=== PATIENT | female | born 1935 | race Caucasian/White ===

== ENCOUNTER 2019-03-22 14:41 | Outpatient (CLI) | payer MEDICARE, OTHER | END 2019-03-22 23:55 | disposition home or self-care (01) | LOC: CARD 14:41 | PROVIDERS: ATTEND Internal Medicine Interventional Cardiology | DX: M79.604 Pain in right leg (principal); R22.41 Localized swelling, mass and lump, right lower limb | CPT/HCPCS: 93971-TC ==

== ENCOUNTER 2019-06-13 17:39 | Inpatient (IN) | payer MEDICARE, OTHER ==
[~2019-06-13] VITALS: Ht 167.6 cm; Wt 64.4 kg
--- NOTE | 2019-06-13 18:00 | NUR ---
bibdaughter in law, from [facility], came in due to low bp 76/43 on scene. Patient a/ox3, breathing even and unlabored, no sob noted, needs attended. Keep comfortable. No distress noted.
--- NOTE | 2019-06-13 19:03 | NUR ---
iv line established, blood drawn and sent to lab
[2019-06-13 19:11] LABS: BASOPHILS % (AUTO) 0.6 % (0.0-2.0); HEMATOCRIT 31 % (33-45); HEMOGLOBIN 10.4 g/dL (11.5-14.8); LYMPHOCYTES # (AUTO) 0.6 /CMM (0.8-4.8); LYMPHOCYTES % (AUTO) 8.7 % (20.0-44.0); MEAN CORPUSCULAR HGB CONC 34 g/dl (31.0-36.0); MEAN CORPUSCULAR VOLUME 84 fL (82-100); MONOCYTES # (AUTO) 0.5 /CMM (0.1-1.30); MONOCYTES % (AUTO) 6.9 % (2.0-12.0); NEUTROPHILS # (AUTO) 5.9 /CMM (1.8-8.9); NEUTROPHILS % (AUTO) 83.8 % (43.0-81.0); PLATELET COUNT (AUTO) 178 /CMM (150-450); RED BLOOD CELL COUNT(AUTO) 3.68 MIL/uL (4.0-5.2)
--- NOTE | 2019-06-13 19:15 | NUR ---
REPORT REC'D FROM JARED NORIEGA
--- NOTE | 2019-06-13 19:15 | NUR ---
XRAY IN PROGRESS AT THE BEDSIDE.
--- NOTE | 2019-06-13 19:19 | NUR ---
IN & OUT CATH/STRAIGHT CATH IN PROGRESS AT THE BEDSIDE. PT HAS APPROX 300 ML YELLOW, CLEAR URINE OUTPUT.
[2019-06-13 19:40] LABS: CALCIUM, SERUM 10.3 mg/dL (8.5-10.1); CARBON DIOXIDE 33 mmol/L (21-32); CHLORIDE 95 mmol/L (98-107); CREATININE 1.5 mg/dL (0.6-1.3); GLUCOSE 120 mg/dL (74-106); POTASSIUM 3.5 mmol/L (3.5-5.1); SODIUM SERUM 133 mmol/L (136-145); UREA NITROGEN, BLOOD 36 mg/dL (7-18)
[2019-06-13 19:42] LABS: APPEARANCE,URINE Clear (CLEAR); BILIRUBIN,URINE Negative (NEGATIVE); BLOOD, URINE Trace-intact Ery/uL (NEGATIVE); COLOR,URINE Yellow (YELLOW); KETONES,URINE Negative (NEGATIVE); LEUKOCYTE ESTERASE ,URINE Negative (NEGATIVE); NITRITE, URINE Negative (NEGATIVE); PROTEIN,URINE Negative (NEGATIVE); UGLUCOSE Negative (NEGATIVE); UROBILINOGEN,URINE 0.2 EU/dL (0.2)
[2019-06-13 19:46] LABS: ALANINE AMINOTRANSFERASE 11 U/L (12-78); ALBUMIN 3.1 g/dL (3.4-5.0); ALKALINE PHOSPHATASE 41 U/L (46-116); ASPARTATE AMINOTRANSFERASE 15 U/L (15-37); BILIRUBIN,DIRECT 0.1 mg/dL (0.0-0.2); BILIRUBIN,TOTAL 0.5 mg/dL (0.2-1.0); TOTAL PROTEIN, SERUM 7.8 g/dL (6.4-8.2)
[2019-06-13 19:50] LABS: BACTERIA,URINE Few /HPF (None Seen); SQUAMOUS EPITHELIAL CELL,UR Few /HPF (None Seen); WBC,URINE 0-2 /HPF (0-3)
--- NOTE | 2019-06-13 20:15 | NUR ---
CALLED DR CANADA, WAS PAGED.
[2019-06-13] MEDS ORDERED: IV NS 0.9% 500 ML BAG IV ONE (20:30)
--- NOTE | 2019-06-13 20:52 | NUR ---
CALLED [facility] FOR TELE BED
[2019-06-13] MEDS ORDERED: QUIN20TA18 PO (21:11)
[2019-06-13] MEDS ORDERED: TOVIAZ ER PO (21:11)
[2019-06-13] MEDS ORDERED: METH1TAB30 PO (21:11)
[2019-06-13] MEDS ORDERED: MAGN400O21 PO (21:11)
[2019-06-13] MEDS ORDERED: DOCU100C36 PO (21:11)
[2019-06-13] MEDS ORDERED: NYST5ORA PO (21:11)
[2019-06-13] MEDS ORDERED: CALC-1276 PO (21:11)
[2019-06-13] MEDS ORDERED: LEVO75TA7 PO (21:11)
[2019-06-13] MEDS ORDERED: MINE454C11 TP (21:11)
[2019-06-13] MEDS ORDERED: LORA-259 PO (21:11)
[2019-06-13] MEDS ORDERED: ESTRADIOL 0.01% TP (21:11)
[2019-06-13] MEDS ORDERED: TRIAMCINOLONE 0.025% TP (21:11)
[2019-06-13] MEDS ORDERED: METH1ADH6 TP (21:11)
[2019-06-13] MEDS ORDERED: GLYC1SUP4 RC (21:11)
[2019-06-13] MEDS ORDERED: MENT1.1L PO (21:11)
[2019-06-13] MEDS ORDERED: CERA355L TP (21:11)
[2019-06-13] MEDS ORDERED: PRISTIQ ER PO (21:11)
[2019-06-13] MEDS ORDERED: METAMUCIL FIBER PO (21:11)
[2019-06-13] MEDS ORDERED: POLY17PO29 PO (21:11)
[2019-06-13] MEDS ORDERED: CHOL200026 PO (21:11)
[2019-06-13] MEDS ORDERED: POTASSIUM CL ER PO (21:11)
[2019-06-13] MEDS ORDERED: TRAZ-182 PO (21:11)
[2019-06-13] MEDS ORDERED: AMIT25TA9 PO (21:11)
[2019-06-13] MEDS ORDERED: ACET325T53 PO (21:11)
[2019-06-13] MEDS ORDERED: ONDA-97 PO (21:11)
[2019-06-13] MEDS ORDERED: [UNRECOGNIZED DRUG - OTHER] TP (21:11)
[2019-06-13] MEDS ORDERED: RIVA10TA PO (21:11)
[2019-06-13] MEDS ORDERED: CETI10TA14 PO (21:11)
[2019-06-13] MEDS ORDERED: CARV25TA2 PO (21:11)
[2019-06-13] MEDS ORDERED: HYDR25TA4 PO (21:11)
[2019-06-13] MEDS ORDERED: DICL100G16 TP (21:11)
[2019-06-13] MEDS ORDERED: CARB15DR2 OP (21:11)
[2019-06-13] MEDS ORDERED: FURO20TA4 PO (21:11)
[2019-06-13] MEDS ORDERED: CALC-896 PO (21:11)
[2019-06-13] MEDS ORDERED: ZINC57OI3 TP (21:11)
[2019-06-13] MEDS ORDERED: NITR100C11 PO (21:11)
[2019-06-13] MEDS ORDERED: KETO5DRO72 OP (21:11)
[2019-06-13] MEDS ORDERED: TRAM50TA2 PO (21:11)
--- NOTE | 2019-06-13 21:45 | NUR ---
CALLING REPORT TO MS NURSE.
--- NOTE | 2019-06-13 21:52 | NUR ---
REPORT TO JARED ALONZO
[2019-06-13] MEDS ORDERED: IV NS 0.9% 1,000 ML IV PRN (21:59)
[2019-06-13] MEDS ORDERED: TRAMADOL HCL 50 MG TABLET PO PRN (22:00)
[2019-06-13] MEDS ORDERED: ONDANSETRON HCL/PF 4 MG/2 ML VIAL IVP PRN (22:00)
[2019-06-13] MEDS ORDERED: ACETAMINOPHEN 325 MG TABLET PO PRN (22:00)
[2019-06-13] MEDS ORDERED: LORAZEPAM 1 MG TABLET PO PRN (22:00)
[2019-06-13] MEDS ORDERED: NYSTATIN SUSP 100,000 U/ML BOTTLE PO PRN (22:00)
[2019-06-13] MEDS ORDERED: cetrizine 10 MG TABLET PO PRN (22:00)
[2019-06-13] MEDS ORDERED: Z GUARD REMEDY 2 OZ OINT TP PRN (22:00)
--- NOTE | 2019-06-13 22:00 | NUR ---
MS RN OPENING NOTES, RECEIVED PATIENT FROM ER VIA DANNY, A/O X 3. SON AT BED SIDE. PATIENT IS ON ROOM AR TOLERATING WELL, NO SOB OR ACUTE DISTRESS NOTED AT THIS TIME. PATIENT HAS LEFT UPPER CHEST PEACEMAKER AND RAC #20, FLUSHING WELL. NO S/S OF INFILTRATION NOTED. BED IS IN LOCKED/LOW POSITION CALL LIGHT WITHIN REACH. WILL CONTINUE TO MONITOR.
[2019-06-13] MEDS: AMITRIPTYLINE HCL 25 MG TABLET PO SCH (23:16)
[2019-06-13] MEDS: TRAZODONE 50 MG TABLET PO SCH (23:16)
[2019-06-14] VITALS: BP 128/74
[2019-06-14 04:00] VITALS: BP_SYST 143; BP_DIAS 60; BP_DIAS 74
[2019-06-14 07:08] LABS: BASOPHILS % (AUTO) 0.6 % (0.0-2.0); EOSINOPHILS % (AUTO) 0.3 % (0.0-6.0); HEMATOCRIT 31 % (33-45); HEMOGLOBIN 10.2 g/dL (11.5-14.8); LYMPHOCYTES # (AUTO) 0.6 /CMM (0.8-4.8); LYMPHOCYTES % (AUTO) 11.7 % (20.0-44.0); MEAN CORPUSCULAR HGB CONC 33 g/dl (31.0-36.0); MEAN CORPUSCULAR VOLUME 85 fL (82-100); MONOCYTES # (AUTO) 0.5 /CMM (0.1-1.30); MONOCYTES % (AUTO) 8.3 % (2.0-12.0); NEUTROPHILS # (AUTO) 4.3 /CMM (1.8-8.9); NEUTROPHILS % (AUTO) 79.1 % (43.0-81.0); PLATELET COUNT (AUTO) 162 /CMM (150-450); RED BLOOD CELL COUNT(AUTO) 3.63 MIL/uL (4.0-5.2); WHITE BLOOD COUNT (AUTO) 5.5 K/uL (4.3-11.0)
[2019-06-14 07:26] LABS: ALANINE AMINOTRANSFERASE < 6 U/L (12-78); ALBUMIN 2.7 g/dL (3.4-5.0); ALKALINE PHOSPHATASE 39 U/L (46-116); ASPARTATE AMINOTRANSFERASE 10 U/L (15-37); BILIRUBIN,TOTAL 0.3 mg/dL (0.2-1.0); CALCIUM, SERUM 9.2 mg/dL (8.5-10.1); CARBON DIOXIDE 31 mmol/L (21-32); CHLORIDE 98 mmol/L (98-107); CREATININE 1.3 mg/dL (0.6-1.3); GLUCOSE 87 mg/dL (74-106); MAGNESIUM 1.4 mg/dL (1.8-2.4); PHOSPHORUS 3.4 mg/dL (2.5-4.9); POTASSIUM 3.2 mmol/L (3.5-5.1); SODIUM SERUM 134 mmol/L (136-145); UREA NITROGEN, BLOOD 33 mg/dL (7-18)
[2019-06-14 07:29] LABS: CHOLESTEROL 204 mg/dL (<200); HDL CHOLESTEROL 38 mg/dL (40-60); LDL 141 mg/dL (0-99); THYROID STIMULATING HORMONE 1.587 uIU/mL (0.358-3.74); TRIGLYCERIDES 87 mg/dL (30-150)
[2019-06-14 07:33] LABS: IRON, SERUM 15 ug/dl (50-175); TOTAL IRON BINDING CAPACITY 157 ug/dl (250-450)
[2019-06-14] MEDS: LEVOTHYROXINE SODIUM 75 MCG TABLET PO SCH (07:37)
[2019-06-14 08:00] VITALS: BP 132/74
--- NOTE | 2019-06-14 08:00 | NUR ---
RNNOTES RECEIVED PATIENT IN THE BED A/O X3, STABLE REFUSED PAIN, NO ACUTE RESPIRATORY DISTRESS, V/S TAKEN, ADMINISTERED SCHEDULED MEDICATION, PATIENT POOR EATER, NEEDS ATTENDED AND ANTICIPATED, INFUSING NS AT 75 ML/HE ON RIGHT AC AREA INTACT. CALL LIGHT WITHIN TO REACH.
--- NOTE | 2019-06-14 09:07 | NUR ---
MS RN CLOSING NOTES, PATIENT IN BED RESTING, A/O X 3. PATIENT IS ON ROOM AR TOLERATING WELL, NO SOB OR ACUTE DISTRESS NOTED AT THIS TIME. PATIENT HAS LEFT UPPER CHEST PEACEMAKER AND RAC #20, NS RUNNING AT 75ML/HR. NO S/S OF INFILTRATION NOTED. BED IS IN LOCKED/LOW POSITION CALL LIGHT WITHIN REACH. ENDORSED PATIENT TO AM RN FOR LULA.
[2019-06-14] MEDS: Magnesium 1GM/D5W 100ML PREMIX 100 ML IV SCH ×2 (09:59→10:30)
--- NOTE | 2019-06-14 10:00 | NUR ---
RN NOTES PATIENT WALKING IN THE ROOM WITH THE PT USING WALKER, AND WILL CONTINUED FOLLOW UP TOMORROW. INFUSING MG 100 ML/HR AT THIS TIME.
[2019-06-14] MEDS: RIVAROXABAN 10 MG TABLET PO SCH (10:07)
[2019-06-14] MEDS: CARVEDILOL 12.5 MG TABLET PO SCH ×2 (10:08→21:27)
[2019-06-14] MEDS: POTASSIUM CHLORIDE 20 MEQ TAB.PRT.SR PO SCH ×2 (10:27→12:09)
[2019-06-14 12:00] VITALS: BP 129/70
[2019-06-14] MEDS: SOD FERRIC GLUC 125 MG in IV NS 0.9% 100 ML IV SCH (14:23)
--- NOTE | 2019-06-14 18:00 | NUR ---
RN NOTES PATIENT IN THE BED TOLERATED DINNER 30 %, PER PATIENT SHE IS ALWAYS EATING SMALL PORTION, SCHEDULED MEDICATION ADMINISTERED, V/S STABLE, INFUSING NS AT 75 ML/HR ON RIGHT AC AREA INTACT. PER HOSPITALIST PLAN ID DISCHARGE PATIENT TO THE REHAB FOR PT. ENDORSED ONCOMING NURSE FOLLOW PLAN OF CARE.
--- NOTE | 2019-06-14 19:45 | NUR ---
MS RN NOTE PT ARRIVED TO FLOOR VIA BED ACCOMPANIED BY [facility] STAFF. PT IN STABLE CONDITION A/O X 3, AWAKE AND VERBAL. NO SIGNS OF SOB OR DISTRESS, NO C/O PAIN OR N/V. IV IN LAC #[address] ALL CURRENT NEEDS ATTENDED TO. BED LOW, LOCKED, UPPER RAILS UP AND CALL LIGHT WITHIN REACH. WILL CONT. TO MONITOR.
[2019-06-14 20:00] VITALS: BP 141/71
[2019-06-14] MEDS ORDERED: AMITRIPTYLINE HCL 25 MG TABLET ONE (21:19)
[2019-06-14] MEDS: TRAZODONE 50 MG TABLET PO SCH (21:28)
[2019-06-14] MEDS: AMITRIPTYLINE HCL 25 MG TABLET PO SCH (21:28)
[2019-06-15 04:04] VITALS: BP 129/71
[2019-06-15 06:11] VITALS: BP 141/71
[2019-06-15 06:32] LABS: BASOPHILS % (AUTO) 0.4 % (0.0-2.0); EOSINOPHILS % (AUTO) 0.2 % (0.0-6.0); HEMATOCRIT 30 % (33-45); HEMOGLOBIN 10.1 g/dL (11.5-14.8); LYMPHOCYTES # (AUTO) 0.9 /CMM (0.8-4.8); LYMPHOCYTES % (AUTO) 16.8 % (20.0-44.0); MEAN CORPUSCULAR HGB CONC 33 g/dl (31.0-36.0); MEAN CORPUSCULAR VOLUME 85 fL (82-100); MONOCYTES # (AUTO) 0.7 /CMM (0.1-1.30); MONOCYTES % (AUTO) 11.7 % (2.0-12.0); NEUTROPHILS % (AUTO) 70.9 % (43.0-81.0); PLATELET COUNT (AUTO) 162 /CMM (150-450); WHITE BLOOD COUNT (AUTO) 5.7 K/uL (4.3-11.0)
[2019-06-15] MEDS: LEVOTHYROXINE SODIUM 75 MCG TABLET PO SCH (06:37)
--- NOTE | 2019-06-15 06:41 | NUR ---
MS RN NOTE PT REMAINS IN STABLE CONDITION A/O X 3, RESTING IN BED. NO SIGNS OF SOB OR DISTRESS, NO C/O PAIN OR N/V. IV IN LAC #[address] WITH IVF INFUSING. ALL CURRENT NEEDS ATTENDED TO. BED LOW, LOCKED, UPPER RAILS UP AND CALL LIGHT WITHIN REACH. WILL CONT. TO MONITOR AND ENDORSE TO NEXT SHIFT FOR LULA.
[2019-06-15] MEDS: IV NS 0.9% 1,000 ML IV PRN ×2 (06:45→21:13)
[2019-06-15 06:51] LABS: ALBUMIN 2.6 g/dL (3.4-5.0); BILIRUBIN,TOTAL 0.3 mg/dL (0.2-1.0); CALCIUM, SERUM 9.3 mg/dL (8.5-10.1); CREATININE 1.2 mg/dL (0.6-1.3); PHOSPHORUS 2.8 mg/dL (2.5-4.9); POTASSIUM 3.2 mmol/L (3.5-5.1); TOTAL PROTEIN, SERUM 6.9 g/dL (6.4-8.2)
[2019-06-15 07:10] LABS: THYROID STIMULATING HORMONE 1.479 uIU/mL (0.358-3.74); URIC ACID 6.5 mg/dL (2.6-7.2)
[2019-06-15 07:30] VITALS: BP 133/75
--- NOTE | 2019-06-15 07:30 | NUR ---
M/S RN NOTES PATIENT RESTING IN BED, ALERT AND ORIENTED X3, NO RESPIRATORY DISTRESS, NO C/O PAIN AT THIS TIME. SKIN WARM TO TOUCH, IV NS INFUSING AT 125ML/HR ON THE RAC #20G, INTACT AND PATENT. PATIENT'S NEEDS ATTENDED, BED ON LOWEST LOCKED POSITION, CALL LIGHT WITHIN REACH. WILL CONTINUE TO MONITOR.
[2019-06-15] MEDS: CARVEDILOL 12.5 MG TABLET PO SCH ×2 (09:14→21:06)
[2019-06-15] MEDS: RIVAROXABAN 10 MG TABLET PO SCH (09:19)
[2019-06-15] MEDS ORDERED: POTASSIUM CHLORIDE 20 MEQ TAB.PRT.SR PO ONE (10:30)
[2019-06-15 12:00] VITALS: BP 160/70
[2019-06-15] MEDS: SOD FERRIC GLUC 125 MG in IV NS 0.9% 100 ML IV SCH (14:17)
--- NOTE | 2019-06-15 15:36 | NUR ---
M/S RN NOTES JULIET FROM [facility] REPORTED THAT PATIENT IS POSITIVE FOR MRSA IN THE NARES. WILL NOTIFY
--- NOTE | 2019-06-15 15:38 | NUR ---
M/S RN NOTES CONTACT ISOLATION PRECAUTION IN PLACE FOR PATIENT FOR MRSA NARES.
--- NOTE | 2019-06-15 19:45 | NUR ---
RN NOTES RECEIVED PATIENT AWAKE ON BED A/OX3, DENIES PAIN, NO SOB, CALL LIGHT WITHIN REACH, SIDERAILSUPX2, CONTINUE TO MONITOR
[2019-06-15 20:00] VITALS: BP 142/83
[2019-06-15 20:37] VITALS: BP 142/83
[2019-06-15] MEDS: MUPIROCIN OINT 2% 22 GM TUBE SCH (21:05)
[2019-06-15] MEDS: TRAZODONE 50 MG TABLET PO SCH (21:05)
[2019-06-15] MEDS: AMITRIPTYLINE HCL 25 MG TABLET PO SCH (21:05)
[2019-06-16] MEDS: LEVOTHYROXINE SODIUM 75 MCG TABLET PO SCH (06:11)
--- NOTE | 2019-06-16 07:00 | NUR ---
RN NOTES AWAKE, MORNING CARE RENDERED, NOT IN DISTRESS, NO PAIN NOTED, CALL LIGHT WITHIN REACH, SIDERAILSUPX2, PT. NEEDS ATTENDED
--- NOTE | 2019-06-16 07:05 | NUR ---
MS RN OPENING NOTES RECEIVED PATIENT, ASLEEP, AROUSABLE TO VERBAL AND TACTILE STIMULI. HOB ELEVATED. DENIES ANY C/O PAIN NOR DISCOMFORT AT THIS TIME. LEFT AC # 20 INTACT AND PATENT INFUSING NS @ 125ML/HR IRENE WELL. BED IN LOWEST POSITION, LOCKED. BED ALARM ON. CALL LIGHT WITHIN REACH.
[2019-06-16 07:06] LABS: PTH, INTACT 20 pg/mL (15-65)
[2019-06-16 08:00] VITALS: BP 149/80
[2019-06-16] MEDS: MUPIROCIN OINT 2% 22 GM TUBE SCH (08:06)
[2019-06-16] MEDS: RIVAROXABAN 10 MG TABLET PO SCH (08:08)
[2019-06-16] MEDS: CARVEDILOL 12.5 MG TABLET PO SCH (08:09)
[2019-06-16 09:07] LABS: *SPE A/G RATIO 0.8 (0.7-1.7); *SPE ALBUMIN 2.8 g/dL (2.9-4.4); *SPE ALPHA-1-GLOBULIN 0.2 g/dL (0.0-0.4); *SPE ALPHA-2-GLOBULIN 0.7 g/dL (0.4-1.0); *SPE GLOBULIN, TOTAL 3.6 g/dL (2.2-3.9); *SPE M-SPIKE Not Observed g/dL (Not Observed); *SPEGAMMA GLOBULIN 1.6 g/dL (0.4-1.8)
[2019-06-16 10:00] VITALS: BP 149/80
[2019-06-16] MEDS ORDERED: LISINOPRIL (10MG) 10 MG TABLET PO SCH (10:30)
[2019-06-16 10:47] VITALS: BP 146/68
[2019-06-16] MEDS ORDERED: POTASSIUM CHLORIDE 20 MEQ TAB.PRT.SR PO SCH (11:00)
--- NOTE | 2019-06-16 11:03 | NUR ---
MS LOCOMOTIVE FIRER/ CLOSING NOTES ALERT AND ORIENTED X3. FOR DISCHARGE WITH DISCHARGE INSTRUCTIONS AND PACKET GIVEN TO EMT. REPORT GIVEN TO ROSARIO AT [facility]. NO S/S OF RESPIRATORY DISTRESS. DENIES ANY C/O PAIN NOR DISCOMFORT AT THIS TIME. DR. HOGAN SPOKE TO JESSICA FLOR AND UPDATED FAMILY THAT PATIENT IS LEAVING FOR [facility]. IV CATHETER REMOVED WITH CATHETER TIP INTACT WITH PRESSURE DRESSING APPLIED. ALL BELONGINGS ACCOUNTED FOR. PATIENT PICKED UP BY JOHNNIE ACCOMPANIED BY 2 EMT AND LEFT VIA GURNEY, LEFT IN STABLE CONDITION.
[2019-06-16] MEDS ORDERED: GLUCERNA SHAKE 237 ML CAN PO SCH (12:00)
== END 2019-06-16 11:03 | DRG 682 ==
LOC: ER 17:44 → MEDSG1 21:35 → MEDSG2 06-14 19:41
PROVIDERS: ADMIT Nurse Practitioner Acute Care; ATTEND Internal Medicine
DX: N17.0 Acute kidney failure with tubular necrosis (principal); G92 Toxic encephalopathy; E87.1 Hypo-osmolality and hyponatremia; I69.354 Hemiplegia and hemiparesis following cerebral infarction affecting left non-dominant side; D68.69 Other thrombophilia; E86.1 Hypovolemia; I48.91 Unspecified atrial fibrillation; D63.8 Anemia in other chronic diseases classified elsewhere; D50.9 Iron deficiency anemia, unspecified; E83.42 Hypomagnesemia; E87.6 Hypokalemia; E86.0 Dehydration; F41.9 Anxiety disorder, unspecified; I10 Essential (primary) hypertension; I95.2 Hypotension due to drugs; Z87.891 Personal history of nicotine dependence; Z90.49 Acquired absence of other specified parts of digestive tract; Z95.0 Presence of cardiac pacemaker; E83.52 Hypercalcemia; F39 Unspecified mood [affective] disorder; T50.1X5A Adverse effect of loop [high-ceiling] diuretics, initial encounter; Y92.89 Other specified places as the place of occurrence of the external cause; F32.9 Major depressive disorder, single episode, unspecified; I69.398 Other sequelae of cerebral infarction; Z87.440 Personal history of urinary (tract) infections
CPT/HCPCS: 36415; 71045-TC; 80048-TC; 80053-TC; 80061-TC; 80076-TC; 81000-TC; 82550-TC; 83540-TC; 83605-TC; 83735-TC; 83970; 84100-TC; 84155; 84165; 84443-TC; 84484-TC; 84550-TC; 85025-TC; 85730-TC; 87040-TC; 87081-TC; 87086-TC; 93307-TC; 93970-TC; 97110-TC; 97116-TC; 97530-TC; G0378; J2916; J3475; J7030; J7040

== ENCOUNTER 2020-03-21 09:22 | Inpatient (IN) | payer MEDICARE, OTHER ==
[~2020-03-21] VITALS: Ht 167.6 cm; Wt 60.3 kg
[~2020-03-21 09:22] MED LIST: AMIT25TA9 PO; CALC-1276 PO; CALC-896 PO; CARB15DR2 OP; CARV25TA2 PO; CERA355L TP; CETI10TA14 PO; CHOL200026 PO; DOCU100C36 PO; GLYC1SUP4 RC; HYDR25TA4 PO; KETO5DRO72 EACHEYE; LEVO75TA7 PO; LORA-259 PO; MAGN400O21 PO; MENT1.1L PO; METH1ADH6 TP; METH1TAB30 PO; MINE454C11 TP; POLY17PO29 PO; QUIN20TA18 PO; RIVA10TA PO; TRAZ-182 PO; ZINC57OI3 TP
--- NOTE | 2020-03-21 09:30 | NUR ---
PT EUN CAME FROM [facility] C/O GENERALIZED WEAKNESS WELL NAUSEA AND DIARRHEA X2 DAYS. VS CHECKED. AWAITING MD SIU.
--- NOTE | 2020-03-21 09:40 | NUR ---
IV ACCESS INSERTED ON R AC G28. BLOOD DRAW DONE.
--- NOTE | 2020-03-21 09:45 | NUR ---
PT SEEN BY
[2020-03-21] MEDS ORDERED: ONDANSETRON HCL/PF 4 MG/2 ML VIAL ONE (09:52)
[2020-03-21 10:00] LABS: BASOPHILS % (AUTO) 0.2 % (0.0-2.0); EOSINOPHILS % (AUTO) 0.1 % (0.0-6.0); HEMATOCRIT 30 % (33-45); HEMOGLOBIN 9.8 g/dL (11.5-14.8); LYMPHOCYTES # (AUTO) 0.9 /CMM (0.8-4.8); LYMPHOCYTES % (AUTO) 7.5 % (20.0-44.0); MEAN CORPUSCULAR HGB CONC 33 g/dl (31.0-36.0); MEAN CORPUSCULAR VOLUME 89 fL (82-100); MONOCYTES # (AUTO) 0.5 /CMM (0.1-1.30); MONOCYTES % (AUTO) 3.9 % (2.0-12.0); NEUTROPHILS # (AUTO) 10.6 /CMM (1.8-8.9); NEUTROPHILS % (AUTO) 88.3 % (43.0-81.0); PLATELET COUNT (AUTO) 201 /CMM (150-450); RED BLOOD CELL COUNT(AUTO) 3.35 MIL/uL (4.0-5.2); WHITE BLOOD COUNT (AUTO) 12.1 K/uL (4.3-11.0)
[2020-03-21] MEDS ORDERED: IV NS 0.9% 1,000 ML BAG IV ONE (10:00)
[2020-03-21] MEDS ORDERED: ONDANSETRON HCL/PF 4 MG/2 ML VIAL IVP ONE (10:00)
[2020-03-21 10:14] LABS: CARBON DIOXIDE 31 mmol/L (21-32); CHLORIDE 99 mmol/L (98-107); CREATININE 1.6 mg/dL (0.6-1.3); GLUCOSE 96 mg/dL (74-106); POTASSIUM 3.5 mmol/L (3.5-5.1); SODIUM SERUM 135 mmol/L (136-145); UREA NITROGEN, BLOOD 36 mg/dL (7-18)
[2020-03-21 10:19] LABS: ALBUMIN 2.7 g/dL (3.4-5.0); ALKALINE PHOSPHATASE 46 U/L (46-116); BILIRUBIN,DIRECT 0.1 mg/dL (0.0-0.2); BILIRUBIN,TOTAL 0.3 mg/dL (0.2-1.0); LIPASE 26 U/L (73-393); TOTAL PROTEIN, SERUM 7.3 g/dL (6.4-8.2)
[2020-03-21 10:20] LABS: ASPARTATE AMINOTRANSFERASE 11 U/L (15-37)
[2020-03-21 10:21] LABS: ALANINE AMINOTRANSFERASE 13 U/L (12-78)
[2020-03-21] MEDS ORDERED: ACETAMINOPHEN 325 MG TABLET PO ONE (10:30)
[2020-03-21] MEDS ORDERED: IOHEXOL-300 100 ML VIAL IV ONE (10:34)
--- NOTE | 2020-03-21 10:34 | NUR ---
PT OUT TO CT
[2020-03-21] MEDS ORDERED: IV NS 0.9% 250 ML IV ONE (10:35)
--- NOTE | 2020-03-21 10:45 | NUR ---
BACK FROM CT
[2020-03-21] MEDS ORDERED: ACID1TAB14 PO (10:53)
[2020-03-21] MEDS ORDERED: FESO8TAB PO (10:53)
[2020-03-21] MEDS ORDERED: [UNRECOGNIZED DRUG - CODE] (10:53)
[2020-03-21] MEDS ORDERED: ALLA266C2 TP (10:53)
[2020-03-21] MEDS ORDERED: MIRT15TA7 PO (10:53)
[2020-03-21] MEDS ORDERED: NITR100C15 PO (10:53)
[2020-03-21] MEDS ORDERED: ESTR42.511 VG (10:53)
[2020-03-21] MEDS ORDERED: AMLO-212 PO (10:53)
[2020-03-21] MEDS ORDERED: HYDR25TA4 PO (10:53)
[2020-03-21] MEDS ORDERED: DICL100G16 TP (11:01)
[2020-03-21] MEDS ORDERED: ONDA4TAB5 PO (11:01)
[2020-03-21] MEDS ORDERED: BENZ5.1G MM (11:01)
[2020-03-21] MEDS ORDERED: ACET-2605 PO (11:01)
[2020-03-21] MEDS ORDERED: GUAI1TBM19 PO (11:01)
[2020-03-21] MEDS ORDERED: TRAM50TA2 PO (11:01)
--- NOTE | 2020-03-21 11:10 | NUR ---
COVID SWAB COLLECTED. SENT TO LAB
[2020-03-21] MEDS ORDERED: VANCOMYCIN 1 GM in IV D5W 250 ML IV ONE (11:30)
[2020-03-21] MEDS ORDERED: CEFEPIME 1 GM in IV D5W 50 ML IV ONE (11:30)
--- NOTE | 2020-03-21 11:42 | NUR ---
CALLED DR. LUIS SOLORZANO [phone]
--- NOTE | 2020-03-21 11:49 | NUR ---
MOVE SHEET COMPLETE AND CALLED FOR [facility] BED.
[2020-03-21] MEDS ORDERED: IV NS 0.9% 1,000 ML IV PRN (12:00)
--- NOTE | 2020-03-21 12:13 | NUR ---
PER LAB, COVID RESULT NEGATIVE.
[2020-03-21] MEDS ORDERED: ACETAMINOPHEN 325 MG TABLET ONE (12:50)
--- NOTE | 2020-03-21 13:00 | NUR ---
PER VACUUM TESTER CANS PT WILL BE GOING TO MS
--- NOTE | 2020-03-21 13:05 | NUR ---
REPORT GIVEN TO FLOR AT [facility] FOR LULA. PT WILL BE GOING TO 204
[2020-03-21] MEDS ORDERED: PIPERACILLIN /TAZOBACTAM 3.375 G in IV D5W 50 ML IV ONE (13:30)
[2020-03-21] MEDS ORDERED: MAG HYDROX/AL HYDROX/SIMETH 30 ML UDC PO PRN (13:30)
[2020-03-21] MEDS: PANTOPRAZOLE 40 MG VIAL IV SCH (13:30)
[2020-03-21] MEDS ORDERED: MAGNESIUM HYDROXIDE 30 ML UDC PO PRN (13:30)
[2020-03-21] MEDS ORDERED: ZOLPIDEM TARTRATE 5 MG TABLET PO PRN (13:30)
[2020-03-21] MEDS ORDERED: MORPHINE SULFATE INJ 2 MG/ML DISP.SYRIN IV PRN (13:30)
[2020-03-21] MEDS ORDERED: ONDANSETRON HCL/PF 4 MG/2 ML VIAL IVP PRN (13:30)
--- NOTE | 2020-03-21 14:10 | NUR ---
MS/RN NOTES RECEIVED REPORT FROM ROHAN COLEMAN. ADMITTED A FEMALE PATIENT. INITIAL V/S BP 90/60 T 99 SAO2 98% P 65. ASSESSMENT WAS DONE AND RECORDED. PATIENT IN NO APPARENT RESPIRATORY DISTRESS NOTED. DENIES PAIN AT THIS TIME. WILL CONTINUE TO MONITOR.
[2020-03-21 16:00] VITALS: BP 112/60
[2020-03-21] MEDS: ZOSYN IVPB 2.25 G in IV D5W 50ml IV SCH ×2 (16:18→23:55)
--- NOTE | 2020-03-21 18:15 | NUR ---
MS/RN NOTES JOSEE SPOOLER RUBBER STRAND ORDER TO DISCONTINUE NS1L AT 125 ML/HR AFTER THEN START D5NS 1L. NOTED AND CARRIED OUT.
--- NOTE | 2020-03-21 19:28 | NUR ---
MS/RN NOTES PATIENT IS ON BED. ALERT AND ORIENTED X3. PATIENT IN NO APPARENT RESPIRATORY DISTRESS NOTED AT THIS TIME. IV ACCESS AT RIGHT AC # 18G WITH IV FLUID OF NS 1L AT 125ML/HR ON AND INFUSING WELL. SEEN AND EXAMINED BY MD WITH ORDERS MADE AND CARRIED OUT. ALL DUE MEDICATIONS WAS GIVEN. SAFETY PRECAUTION WAS IN PLACED . BED IN LOWEST POSITION AND LOCKED. SIDE RAILS UP X2. CALL LIGHT WITHIN REACH. WILL ENDORSED TO ROVING OR YARN COLOR CHECKER FOR LULA.
--- NOTE | 2020-03-21 19:30 | NUR ---
MS/RN OPENING NOTES: RECEIVED PATIENT ON BED. A/OX3. NO SOB NOTED. NO APPARENT RESPIRATORY DISTRESS NOTED AT THIS TIME. NO C/O PAIN AT THIS TIME. IV ACCESS AT RIGHT AC # 18G WITH IV FLUID INFUSING WELL. SKIN INTACT. STILL NPO STATUS. SAFETY PRECAUTION WAS IN PLACED. BED IN LOWEST POSITION AND LOCKED. SIDE RAILS UP X2. CALL LIGHT WITHIN REACH. WILL CONTINUE TO MONITOR ACCORDINGLY.
[2020-03-21 20:00] VITALS: BP 108/62
[2020-03-21 20:16] LABS: BILIRUBIN,URINE NEGATIVE (NEGATIVE); BLOOD, URINE NEGATIVE Ery/uL (NEGATIVE); COLOR,URINE YELLOW (YELLOW); LEUKOCYTE ESTERASE ,URINE NEGATIVE (NEGATIVE); NITRITE, URINE NEGATIVE (NEGATIVE); PROTEIN,URINE NEGATIVE (NEGATIVE); UGLUCOSE NEGATIVE (NEGATIVE); UROBILINOGEN,URINE 0.2 EU/dL (0.2)
[2020-03-21] MEDS: IV D5/ 0.9% NACL 1,000 ML IV PRN (23:39)
[2020-03-22] MEDS: ZOSYN IVPB 2.25 G in IV D5W 50ml IV SCH ×2 (05:45→12:47)
--- NOTE | 2020-03-22 06:16 | NUR ---
MS/RN CLOSING NOTES: PATIENT REMAINS ON BED. A/OX3-4. KEPT WARM AND COMFORTABLE IN BED THROUGH THE NIGHT. ON ROOM AIR. NO SOB NOTED. IN STABLE CONDITION, DENIES PAIN AT THIS TIME. NO APPARENT RESPIRATORY DISTRESS NOTED AT THIS TIME. IV ACCESS AT RIGHT AC # 18G WITH IV D5NS AT 75MLS/HR INFUSING. ALL DUE MEDS GIVEN ORDERED, KEPT NPO STATUS. PER DR. SOLORZANO LAST NIGHT "ENCOURAGE THE PT TO AMBULATE AT LEAST 4X A DAY IN THE MORNING." WILL ENDORSE TO DAY SHIFT. SAFETY PRECAUTION KEPT IN PLACED. BED IN LOWEST POSITION AND LOCKED. SIDE RAILS UP X2. CALL LIGHT WITHIN REACH. ALL NURSING NEEDS MET AND ATTENDED. WILL ENDORSE TO DAY SHIFT FOR LULA.
[2020-03-22 07:16] LABS: BASOPHILS % (AUTO) 0.5 % (0.0-2.0); HEMATOCRIT 27 % (33-45); HEMOGLOBIN 8.9 g/dL (11.5-14.8); LYMPHOCYTES # (AUTO) 0.7 /CMM (0.8-4.8); LYMPHOCYTES % (AUTO) 9.3 % (20.0-44.0); MEAN CORPUSCULAR HGB CONC 34 g/dl (31.0-36.0); MEAN CORPUSCULAR VOLUME 89 fL (82-100); MONOCYTES # (AUTO) 0.4 /CMM (0.1-1.30); MONOCYTES % (AUTO) 5.2 % (2.0-12.0); NEUTROPHILS # (AUTO) 6.7 /CMM (1.8-8.9); PLATELET COUNT (AUTO) 199 /CMM (150-450); RED BLOOD CELL COUNT(AUTO) 2.97 MIL/uL (4.0-5.2)
--- NOTE | 2020-03-22 07:35 | NUR ---
MS JARED OPEN NOTES PATIENT IS A/O X 3. WITH NO SIGNS OF DISTRESS IN ROOM AIR. IV R AC #18G INTACT RUNNING D5 NS AT 75 ML/HR. PATIENT CURRENTLY NPO. NO COMPLAIN OF PAIN AT THIS MOMENT. SAFETY MEASURES ARE BEING APPLIED, BED IS IN LOW AND LOCKED POSITION, SIDE RAILS UP X 2, CALL LIGHT WITHIN REACH. COVID PCR RESULT CURRENTLY PENDING. WILL CONTINUE TO MONITOR.
[2020-03-22 08:00] VITALS: BP 114/50
[2020-03-22 08:02] LABS: ALANINE AMINOTRANSFERASE 11 U/L (12-78); ALBUMIN 2.2 g/dL (3.4-5.0); ALKALINE PHOSPHATASE 45 U/L (46-116); ASPARTATE AMINOTRANSFERASE 13 U/L (15-37); BILIRUBIN,TOTAL 0.3 mg/dL (0.2-1.0); CALCIUM, SERUM 8.2 mg/dL (8.5-10.1); CARBON DIOXIDE 25 mmol/L (21-32); CHLORIDE 105 mmol/L (98-107); CREATININE 1.2 mg/dL (0.6-1.3); GLUCOSE 102 mg/dL (74-106); PHOSPHORUS 2.1 mg/dL (2.5-4.9); POTASSIUM 3.2 mmol/L (3.5-5.1); SODIUM SERUM 140 mmol/L (136-145); TOTAL PROTEIN, SERUM 6.5 g/dL (6.4-8.2); UREA NITROGEN, BLOOD 23 mg/dL (7-18)
[2020-03-22 08:04] LABS: CHOLESTEROL 143 mg/dL (<200); HDL CHOLESTEROL 27 mg/dL (40-60); LDL 92 mg/dL (0-99); TRIGLYCERIDES 76 mg/dL (30-150)
[2020-03-22] MEDS: PANTOPRAZOLE 40 MG VIAL IV SCH (08:21)
[2020-03-22 09:40] VITALS: BP_SYST 106; BP_SYST 114; BP_SYST 120; BP_DIAS 50; BP_DIAS 68; BP_DIAS 81
[2020-03-22] MEDS: POTASSIUM PHOSPHATE MM 7.5 MMOL in IV NS 0.9% 100 ML IV SCH ×2 (10:14→13:11)
[2020-03-22] MEDS: ENOXAPARIN SODIUM 60 MG/0.6 ML DISP.SYRIN SQ SCH (10:17)
[2020-03-22] MEDS ORDERED: VANCOMYCIN 0.75 GM in IV D5W 250 ML IV SCH (13:00)
--- NOTE | 2020-03-22 14:04 | NUR ---
PATIENT WAS TRANSFERRED VIA GURNEY WITH NORIS PAUL AND Margarita WITH NO COMPLICATIONS, NO SIGNS OF DISTRESS IN ROOM AIR. PATIENT WAS ENDORSED TO JARED WILL. Addendum: 03/22/20 at 1619 by FIDELIA ALICEA RN PATIENT WAS TRANSFERRED VIA GURNEY WITH NORIS PAUL AND Margarita WITH NO COMPLICATIONS, NO SIGNS OF DISTRESS IN ROOM AIR. PATIENT WAS ENDORSED TO JARED WILL.
--- NOTE | 2020-03-22 15:15 | NUR ---
GAVE REPORT TO NICOLETTE FOR CONTINUATION OF CARE PATIENT WILL BE TRANSFERRING TO [facility] ROOM# 117-1.
[2020-03-22 16:00] VITALS: BP 133/76
--- NOTE | 2020-03-22 16:00 | NUR ---
PROPERTY MANAGEMENT ACCOUNTANT/MEDSURG NOTE Received patient from ICU via bed, patient is A/Ox3, Icelandic speaking, on ROOM AIR, SPO2 is 98%, no SOB present, denies pain or discomfort at this moment, IV LINE ON R AC 18 NOTED, PATENT AND INTACT, Skin is intact, NPO status noted, Safety measures in place, call light in reach, patient placed in comfortable position, independent in bed, will cont to monitor
--- NOTE | 2020-03-22 16:04 | NUR ---
PATIENT WAS TRANSFERRED VIA GURNEY WITH NORIS GRAHAM WITH NO COMPLICATIONS, NO SIGNS OF DISTRESS IN ROOM AIR. PATIENT WAS ENDORSED TO JARED WILL.
[2020-03-22] MEDS: MUPIROCIN OINT 2% 22 GM TUBE TP SCH (18:09)
--- NOTE | 2020-03-22 18:56 | NUR ---
RN CLOSING NOTES PATIENT REMAINS IN BED, NPO STATUS, RECEIVING IV FLUIDS, TOLERATING WELL, CLEANED, COMFORT PROVIDED, DENIES PAIN, NO SOB, NO DISTRESS NOTED, SAFETY PERCUSSIONS IN PLACE, BED IS LOCKED, CALL LIGHT IN REACH, HOB ELEVATED , WILL ENDORSE TO PM SHIFT RN FOR LULA
--- NOTE | 2020-03-22 19:48 | NUR ---
MS/RN NOTES: RECEIVED PATIENT ON BED. ALERT/ORIENTEDX3. NO SOB NOTED. NO APPARENT RESPIRATORY DISTRESS NOTED AT THIS TIME. NO C/O PAIN AT THIS TIME. IV ACCESS AT RIGHT AC # 18G WITH IV FLUID INFUSING WELL. SKIN INTACT. STILL NPO STATUS. SAFETY PRECAUTION WAS IN PLACED.ASPIRATION PRECAUTION EMPHASIZED. BED IN LOWEST POSITION AND LOCKED. SIDE RAILS UP X2. CALL LIGHT WITHIN REACH. ALL NEEDS ANTICIPATED. WILL CONTINUE TO MONITOR ACCORDINGLY.
[2020-03-22 20:26] VITALS: BP 138/85
[2020-03-22] MEDS: PIPERACILLIN /TAZOBACTAM 3.375 G in IV D5W 100 ML IV SCH (21:03)
[2020-03-23 04:19] VITALS: BP 138/85
[2020-03-23 04:56] VITALS: BP 150/85
[2020-03-23] MEDS: PIPERACILLIN /TAZOBACTAM 3.375 G in IV D5W 100 ML IV SCH ×3 (05:18→20:55)
[2020-03-23 06:06] LABS: BASOPHILS # (AUTO) 0.1 /CMM (0.0-0.2); EOSINOPHILS % (AUTO) 1.4 % (0.0-6.0); HEMATOCRIT 28 % (33-45); HEMOGLOBIN 9.1 g/dL (11.5-14.8); LYMPHOCYTES # (AUTO) 0.8 /CMM (0.8-4.8); LYMPHOCYTES % (AUTO) 13.9 % (20.0-44.0); MEAN CORPUSCULAR HGB CONC 33 g/dl (31.0-36.0); MEAN CORPUSCULAR VOLUME 90 fL (82-100); MONOCYTES # (AUTO) 0.3 /CMM (0.1-1.30); MONOCYTES % (AUTO) 5.9 % (2.0-12.0); NEUTROPHILS # (AUTO) 4.4 /CMM (1.8-8.9); NEUTROPHILS % (AUTO) 77.8 % (43.0-81.0); PLATELET COUNT (AUTO) 219 /CMM (150-450); WHITE BLOOD COUNT (AUTO) 5.7 K/uL (4.3-11.0)
--- NOTE | 2020-03-23 06:14 | NUR ---
RN NOTES ALL NEEDS ATTENDED AND MET ABLE TO REST AND SLEPT AT INTERVALS, REPOSITIONED FOR COMFORT, SAFETY MEASURES IN PLACE, ASPIRATION PRECAUTION EMPHASIZED, DENIES ANY PAIN AT THIS TIME. CALL LIGHT WITH IN EASY REACH. ALL NEEDS ANTICIPATED. WILL ENDORSE TO AM NURSE FOR CONTINUITY OF CARE.
[2020-03-23 06:16] LABS: CALCIUM, SERUM 8.5 mg/dL (8.5-10.1); CREATININE 1.1 mg/dL (0.6-1.3); POTASSIUM 3.6 mmol/L (3.5-5.1)
--- NOTE | 2020-03-23 08:10 | NUR ---
MS/RN NOTES: RECEIVED PATIENT ON BED. ALERT/ORIENTEDX3. NO SOB NOTED. NO APPARENT RESPIRATORY DISTRESS NOTED AT THIS TIME. NO C/O PAIN AT THIS TIME. IV ACCESS AT RIGHT AC # 18G WITH IV FLUID INFUSING WELL. SKIN INTACT. SAFETY PRECAUTION WAS IN PLACED.ASPIRATION PRECAUTION EMPHASIZED. BED IN LOWEST POSITION AND LOCKED. SIDE RAILS UP X2. CALL LIGHT WITHIN REACH. WILL CONTINUE TO MONITOR ACCORDINGLY.
[2020-03-23] MEDS: PANTOPRAZOLE 40 MG VIAL IV SCH (08:28)
[2020-03-23] MEDS: ENOXAPARIN SODIUM 60 MG/0.6 ML DISP.SYRIN SQ SCH (08:36)
[2020-03-23] MEDS: MUPIROCIN OINT 2% 22 GM TUBE TP SCH ×2 (08:43→16:23)
[2020-03-23] MEDS: CARVEDILOL 12.5 MG TABLET PO SCH ×2 (09:26→16:16)
[2020-03-23] MEDS: LEVOTHYROXINE SODIUM 75 MCG TABLET PO SCH (09:26)
[2020-03-23 12:00] VITALS: BP 137/80
[2020-03-23 16:00] VITALS: BP_SYST 130; BP_SYST 137; BP_DIAS 80
--- NOTE | 2020-03-23 17:00 | NUR ---
RN NOTES SEEN AND EXAMINED BY ANDRZEJ HELMS. ORDER FOR CLEAR LIQUID DIET, MADE AND CARRIED OUT. WILL CONTINUE TO MONITOR.
--- NOTE | 2020-03-23 18:31 | NUR ---
RN NOTES: PATIENT IN BED RESTING COMFORTABLY IN MODERATE HIGH BACK REST. ALERT/ORIENTEDX4. NO APPARENT RESPIRATORY DISTRESS NOTED THROUGHOUT THE SHIFT. NO C/O PAIN AT THIS TIME. IV ACCESS AT RIGHT AC # 18G WITH IV FLUID INFUSING WELL. SKIN INTACT. SAFETY PRECAUTION WAS IN PLACED. BED IN LOWEST POSITION AND LOCKED. SIDE RAILS UP X2. CALL LIGHT WITHIN REACH. WILL ENDORSE TO FIRER LOCOMOTIVE CRANE NURSE FOR LULA.
[2020-03-23] MEDS: IV D5/ 0.9% NACL 1,000 ML IV PRN (18:35)
--- NOTE | 2020-03-23 19:15 | NUR ---
RN OPENING NOTES: RECEIVED PT A/OX4 IN BED RESTING COMFORTABLY. PATIENT IN NO S/SX OF ACUTE DISTRESS AT THIS TIME. NO SOB NOTED. PATIENT'S BREATHING IS EVEN AND UNLABORED.PATIENT IS ON ROOM AIR TOLERATING WELL; O2 SAT AT 98% AT TIME OF RECEIVED. PATIENT ON CLEAR LIQUID DIET AT THIS TIME. NOTED IV SITE ON R AC; PATENT, INTACT AND FLUSHING WELL NO S/S OF INFECTION OR INFILTRATION. WITH IV FLUID RUNNING ORDERED. SAFETY MEASURES HAVE BEEN PROVIDED AND IMPLEMENTED. PATIENT BED ALARM IS ON. HEAD OF BED ELEVATED. BED IS LOCKED, IN LOWEST POSITION AND SIDE RAILS UP. CALL LIGHT WITHIN REACH OF THE PATIENT.SAFETY MEASURE AND PRECAUTIONS IN PLACE. WILL CONTINUE TO MONITOR AND REASSESS FOR ANY CHANGES AND WILL CARRY OUT ANY ONGOING AND ACTIVE MD ORDER.
[2020-03-23 20:00] VITALS: BP 132/71
--- NOTE | 2020-03-23 22:00 | NUR ---
RN NOTES NO CHANGE IN PATIENT CONDITION AT THIS TIME PATIENT VITALS STABLE, NO SIGNS OF ACUTE RESPIRATORY DISTRESS. MEAT CUTTING TEACHER MADE AWARE. WILL CONTINUE TO MONITOR AND REASSESS FOR ANY CHANGES THROUGHOUT THE SHIFT.
--- NOTE | 2020-03-24 02:00 | NUR ---
RN NOTES NO CHANGE IN PATIENT CONDITION AT THIS TIME PATIENT VITALS STABLE, NO SIGNS OF ACUTE RESPIRATORY DISTRESS. CURRENCY EXCHANGE SPECIALIST MADE AWARE. WILL CONTINUE TO MONITOR AND REASSESS FOR ANY CHANGES THROUGHOUT THE SHIFT.
[2020-03-24 04:00] VITALS: BP 147/81
[2020-03-24] MEDS: PIPERACILLIN /TAZOBACTAM 3.375 G in IV D5W 100 ML IV SCH ×3 (04:18→20:33)
--- NOTE | 2020-03-24 05:00 | NUR ---
RN NOTES NO NOTED CHANGES TO PATIENT CONDITION/STATUS. EVENT REPRESENTATIVE MADE AWARE. WILL CONTINUE TO MONITOR AND REASSESS FOR ANY CHANGES THROUGHOUT THE SHIFT.
[2020-03-24 06:34] LABS: CALCIUM, SERUM 8.5 mg/dL (8.5-10.1); POTASSIUM 3.4 mmol/L (3.5-5.1)
--- NOTE | 2020-03-24 07:25 | NUR ---
RN CLOSING NOTE: PATIENT REMAINS IN ROOM. NO SIGNS OF RESPIRATORY DISTRESS. SAFETY MEASURES IMPLEMENTED, BED IN LOWEST POSITION, LOCKED, SIDE RAILS UP, CALL LIGHT WITHIN REACH. ALL NEEDS AND ORDERS ADDRESSED DURING THE SHIFT. ALL DUE MEDS GIVEN ORDERED & SCHEDULED ; PATIENT TOLERATED WELL.PATIENT KEPT CLEAN AND COMFORTABLE WITHIN THE SHIFT. ENDORSED TO INCOMING SHIFT RN FOR CONTINUITY OF CARE.
--- NOTE | 2020-03-24 07:27 | NUR ---
MS RN OPENING NOTES RECEIVED PATIENT IN BED, AWAKE, A/O X4 AND WATCHING TV. PATIENT ON ROOM AIR; BREATHING IS EVEN AND UNLABORED; NO SOB NOTED AT THIS TIME. NO COMPLAINS OF PAIN. RAC IV ACCESS PRESENT AND INTACT. SAFETY PRECAUTIONS IN PLACE; BED IN LOW POSITION AND LOCKED, RAILS UP X2, CALL LIGHT WITHIN REACH. WILL CONTINUE TO MONITOR PATIENT.
[2020-03-24] MEDS: LEVOTHYROXINE SODIUM 75 MCG TABLET PO SCH (08:19)
[2020-03-24] MEDS: PANTOPRAZOLE 40 MG VIAL IV SCH (08:19)
[2020-03-24] MEDS: CARVEDILOL 12.5 MG TABLET PO SCH ×2 (08:20→16:20)
[2020-03-24] MEDS: ENOXAPARIN SODIUM 60 MG/0.6 ML DISP.SYRIN SQ SCH ×2 (08:20→20:33)
[2020-03-24] MEDS: MUPIROCIN OINT 2% 22 GM TUBE TP SCH ×2 (08:25→16:07)
[2020-03-24] MEDS: POTASSIUM CL. PREMIX PERIPHER. 50 ML IV SCH ×2 (09:00→10:09)
[2020-03-24] MEDS: AMLODIPINE BESYLATE 5 MG TABLET PO SCH (10:00)
[2020-03-24] MEDS: VALSARTAN 80 MG TABLET PO SCH (10:00)
[2020-03-24] MEDS: POTASSIUM CHLORIDE 20 MEQ TAB.PRT.SR PO SCH ×2 (10:09→11:05)
[2020-03-24 12:19] VITALS: BP 133/68
[2020-03-24] MEDS: ACETAMINOPHEN 325 MG TABLET PO PRN (15:08)
--- NOTE | 2020-03-24 15:10 | NUR ---
MS RN NOTES PATIENT COMPLAINING OF HEADACHE. ASKING FOR PAIN MEDICATION. PRN PAIN MEDICATION ADMINISTERED PER MD ORDER. WILL CONTINUE TO MONITOR.
--- NOTE | 2020-03-24 18:34 | NUR ---
MS RN CLOSING NOTES PATIENT IN BED, AWAKE, A/O X4 AND WATCHING TV. PATIENT ON ROOM AIR; BREATHING IS EVEN AND UNLABORED; NO SOB NOTED DURING THE DAY. NO PAIN AT THIS TIME. RAC IV ACCESS PRESENT AND INTACT. ALL NEEDS ATTENDED TO THROUGHOUT THE DAY. SAFETY PRECAUTIONS IN PLACE; BED IN LOW POSITION AND LOCKED, RAILS UP X2, CALL LIGHT WITHIN REACH. WILL ENDORSE TO INCLINED RAILWAY OPERATOR NURSE.
--- NOTE | 2020-03-24 19:25 | NUR ---
RN NOTES: RECEIVED SLEEPING AND RESTING IN BED COMFORTABLY. PATIENT IN NO S/SX OF ACUTE DISTRESS AT THIS TIME. NO SOB NOTED. PATIENT'S BREATHING IS EVEN AND UNLABORED.PATIENT IS ON ROOM AIR TOLERATING WELL; O2 SAT AT 100% AT TIME OF RECEIVED. PATIENT ON SOFT DIET AT THIS TIME. NOTED IV SITE ON R AC; PATENT, INTACT AND FLUSHING WELL NO S/S OF INFECTION OR INFILTRATION. WITH IV FLUID RUNNING ORDERED (D5 1/2 NS@75ML/HR). SAFETY MEASURES HAVE BEEN PROVIDED AND IMPLEMENTED. PATIENT BED ALARM IS ON. HEAD OF BED ELEVATED. BED IS LOCKED, IN LOWEST POSITION AND SIDE RAILS UP. CALL LIGHT WITHIN REACH OF THE PATIENT.SAFETY MEASURE AND PRECAUTIONS IN PLACE. WILL CONTINUE TO MONITOR AND REASSESS FOR ANY CHANGES AND WILL CARRY OUT ANY ONGOING AND ACTIVE MD ORDER.
[2020-03-24 20:00] VITALS: BP 126/76
[2020-03-24] MEDS: IV D5/ 0.9% NACL 1,000 ML IV PRN ×2 (21:00→21:53)
--- NOTE | 2020-03-25 | NUR ---
RN NOTES NO NOTED CHANGES TO PATIENT CONDITION/STATUS. FINISH MOLDER MADE AWARE. WILL CONTINUE TO MONITOR AND REASSESS FOR ANY CHANGES THROUGHOUT THE SHIFT.
--- NOTE | 2020-03-25 00:30 | NUR ---
RN NOTES NOTED PT'S IV SITE ON R AC TO BE LEAKING AND NON-PATENT. REMOVED LINE NEEDED. FACILITATED IV ACCESS INSERTION ON THE R WRIST # 22; PATENT , INTACT AND FLUSHING WELL. AUTOMOBILE LEASING SUPERVISOR MADE AWARE.
[2020-03-25 04:00] VITALS: BP 149/93
[2020-03-25] MEDS: PIPERACILLIN /TAZOBACTAM 3.375 G in IV D5W 100 ML IV SCH ×2 (04:24→15:19)
[2020-03-25 06:42] LABS: BASOPHILS % (AUTO) 0.7 % (0.0-2.0); EOSINOPHILS % (AUTO) 2.2 % (0.0-6.0); HEMATOCRIT 27 % (33-45); LYMPHOCYTES # (AUTO) 0.8 /CMM (0.8-4.8); LYMPHOCYTES % (AUTO) 12.5 % (20.0-44.0); MEAN CORPUSCULAR HGB CONC 33 g/dl (31.0-36.0); MEAN CORPUSCULAR VOLUME 88 fL (82-100); MONOCYTES # (AUTO) 0.4 /CMM (0.1-1.30); MONOCYTES % (AUTO) 6.6 % (2.0-12.0); NEUTROPHILS # (AUTO) 5.1 /CMM (1.8-8.9); PLATELET COUNT (AUTO) 261 /CMM (150-450); RED BLOOD CELL COUNT(AUTO) 3.08 MIL/uL (4.0-5.2); WHITE BLOOD COUNT (AUTO) 6.6 K/uL (4.3-11.0)
[2020-03-25 07:15] LABS: CALCIUM, SERUM 8.2 mg/dL (8.5-10.1); CREATININE 0.9 mg/dL (0.6-1.3); PHOSPHORUS 1.9 mg/dL (2.5-4.9); POTASSIUM 4.2 mmol/L (3.5-5.1)
--- NOTE | 2020-03-25 07:30 | NUR ---
RN Opening Note Received patient in bed, AO x 4, able to responds all stimuli. Respiratory even and unlabored on room air, no distress or SOB observed. Skin is warm to touch keep clean/dry intact IV site on right AC sarahy 18. Kept locked bed with elevated HOB for ensure airway and aspiration precaution and lowest position for safety. Call light within reach, will continue to monitor.
[2020-03-25 07:53] LABS: MAGNESIUM 1.9 mg/dL (1.8-2.4)
[2020-03-25] MEDS ORDERED: NEUTRA PHOS 1 POWD.PACKET PO ONE (08:30)
[2020-03-25] MEDS ORDERED: LEVO500T90 PO (08:32)
[2020-03-25] MEDS ORDERED: PANTOPRAZOLE 40 MG TABLET.DR PO SCH (09:00)
[2020-03-25] MEDS: CARVEDILOL 12.5 MG TABLET PO SCH ×2 (09:17→16:28)
[2020-03-25] MEDS: AMLODIPINE BESYLATE 5 MG TABLET PO SCH (09:18)
[2020-03-25] MEDS: VALSARTAN 80 MG TABLET PO SCH (09:18)
[2020-03-25] MEDS: MUPIROCIN OINT 2% 22 GM TUBE TP SCH ×2 (09:19→16:28)
[2020-03-25] MEDS: ENOXAPARIN SODIUM 60 MG/0.6 ML DISP.SYRIN SQ SCH (09:20)
[2020-03-25] MEDS: LEVOTHYROXINE SODIUM 75 MCG TABLET PO SCH (09:28)
--- NOTE | 2020-03-25 13:56 | NUR ---
Patient d/c to [facility] given report Renae/RN include Rx Levaquin 500 mg po QD x 7days.
[2020-03-25 16:28] VITALS: BP 160/82
[2020-03-25] MEDS: ACETAMINOPHEN 325 MG TABLET PO PRN (16:28)
--- NOTE | 2020-03-25 18:24 | NUR ---
2 bracelet maker novelty picked up patient and given report. Patient in stable condition, removed IV site, informed continue to Bactroban BID until 03/27/20.
== END 2020-03-25 18:23 | DRG 391 ==
LOC: ER 09:28 → MEDSG2 14:34 → MEDSG1 03-22 16:02
PROVIDERS: ADMIT Nurse Practitioner Acute Care; ATTEND Internal Medicine
DX: K57.20 Diverticulitis of large intestine with perforation and abscess without bleeding (principal); N17.0 Acute kidney failure with tubular necrosis; D68.59 Other primary thrombophilia; I48.91 Unspecified atrial fibrillation; Z87.440 Personal history of urinary (tract) infections; Z86.73 Personal history of transient ischemic attack (TIA), and cerebral infarction without residual deficits; I10 Essential (primary) hypertension; Z95.0 Presence of cardiac pacemaker; Z90.49 Acquired absence of other specified parts of digestive tract; F41.9 Anxiety disorder, unspecified; F32.9 Major depressive disorder, single episode, unspecified; Z79.01 Long term (current) use of anticoagulants; Z79.899 Other long term (current) drug therapy; D64.9 Anemia, unspecified; E03.9 Hypothyroidism, unspecified; E86.1 Hypovolemia; I05.0 Rheumatic mitral stenosis; K40.90 Unilateral inguinal hernia, without obstruction or gangrene, not specified as recurrent; E88.09 Other disorders of plasma-protein metabolism, not elsewhere classified
CPT/HCPCS: 36415; 80048-TC; 80053-TC; 80061-TC; 80076-TC; 81000-TC; 83605-TC; 83690-TC; 83735-TC; 84100-TC; 84484-TC; 85025-TC; 87040-TC; 87081-TC; 93307-TC; 97116-TC; 97530-TC; C9113; C9803; G0378; J0692; J1650; J2270; J2405; J2543; J3370; J3480; J3490; J7030; J7042; J7050; J7060; Q9967; U0003

== ENCOUNTER 2021-05-30 20:12 | Inpatient (IN) | payer MEDICARE, OTHER ==
[~2021-05-30] VITALS: Ht 167.6 cm; Wt 61.2 kg
[~2021-05-30 20:12] MED LIST changes: +ACET-2605 PO; +ACID1TAB14 PO; +ALLA266C2 TP; -AMIT25TA9 PO; +AMLO-212 PO; +BENZ5.1G MM; -CALC-896 PO; -CERA355L TP; -CETI10TA14 PO; +DICL100G16 TP; +ESTR42.511 VG; +FESO8TAB PO; -GLYC1SUP4 RC; +GUAI1TBM19 PO; +LEVO500T90 PO; -MENT1.1L PO; -METH1ADH6 TP; -METH1TAB30 PO; +METH1TAB69 PO; -MINE454C11 TP; +MIRT-90 PO; +ONDA4TAB5 PO; +TRAM50TA2 PO; -ZINC57OI3 TP
--- NOTE | 2021-05-30 20:23 | NUR ---
PATIENT TAKEN TO CT
--- NOTE | 2021-05-30 20:37 | NUR ---
BIBRA FROM ASSISTED C/O LEFT SIDED WEAKNESS AND LEFT SIDED FACIAL DROOP XFEW DAYS +HEADACHE. PT TOLERATING R/A WELL AT NO SOB. CONNECTED PT TO POX AND MONTOR.
--- NOTE | 2021-05-30 21:21 | NUR ---
[facility] PAGED
--- NOTE | 2021-05-30 21:37 | NUR ---
Note lety in EDM - 05/31/21 at 0039 by GLORIA EUN FROM [facility] C/O LEFT SIDED WEAKNESS AND LEFT SIDED FACIAL DROOP XFEW DAYS +HEADACHE. PT TOLERATING R/A WELL AT NO SOB. CONNECTED PT TO POX AND MONTOR.
--- NOTE | 2021-05-30 21:51 | NUR ---
CALLED [facility], PAGED AMADOU
[2021-05-30] MEDS ORDERED: IV NS 0.9% 250 ML IV ONE (21:58)
[2021-05-30] MEDS ORDERED: CT SWABBABLE VALVE TRANS SET 1 EA INFUS.SET MC ONE (21:58)
[2021-05-30] MEDS ORDERED: IOHEXOL-350 100 ML VIAL IV ONE (21:58)
[2021-05-30 22:10] LABS: BASOPHILS % (AUTO) 0.7 % (0.0-2.0); EOSINOPHILS % (AUTO) 1.4 % (0.0-6.0); HEMATOCRIT 32 % (33-45); HEMOGLOBIN 10.7 g/dL (11.5-14.8); LYMPHOCYTES % (AUTO) 21.3 % (20.0-44.0); MEAN CORPUSCULAR HGB CONC 33 g/dl (31.0-36.0); MEAN CORPUSCULAR VOLUME 87 fL (82-100); MONOCYTES # (AUTO) 0.4 K/uL (0.1-1.30); MONOCYTES % (AUTO) 8.2 % (2.0-12.0); NEUTROPHILS # (AUTO) 3.2 K/uL (1.8-8.9); NEUTROPHILS % (AUTO) 68.4 % (43.0-81.0); PLATELET COUNT (AUTO) 197 K/uL (150-450); RED BLOOD CELL COUNT(AUTO) 3.68 MIL/uL (4.0-5.2); WHITE BLOOD COUNT (AUTO) 4.7 K/uL (4.3-11.0)
[2021-05-30 22:35] LABS: CALCIUM, SERUM 9.3 mg/dL (8.5-10.1); CARBON DIOXIDE 27 mmol/L (21-32); CHLORIDE 100 mmol/L (98-107); CREATININE 1.2 mg/dL (0.6-1.3); GLUCOSE 112 mg/dL (74-106); POTASSIUM 3.5 mmol/L (3.5-5.1); SODIUM SERUM 137 mmol/L (136-145); UREA NITROGEN, BLOOD 28 mg/dL (7-18)
--- NOTE | 2021-05-31 00:48 | NUR ---
PAGED EPIC DR. CHOI FOR DR. ADAMS (RADIOLOGY)
--- NOTE | 2021-05-31 00:57 | NUR ---
COVID ANTIGEN SWAB COLLECTED AND SENT TO LAB
--- NOTE | 2021-05-31 06:00 | NUR ---
PATIENT RESTING IN BED, TURNED Q 2HR, AM CARE DONE, VSS, IV INTACT.
[2021-05-31] MEDS ORDERED: [UNRECOGNIZED DRUG - CODE] OP (06:44)
[2021-05-31] MEDS ORDERED: OXYB10TA4 PO (06:44)
[2021-05-31] MEDS ORDERED: PSYL1CAP2 PO (06:44)
[2021-05-31] MEDS ORDERED: LACT10SO3 PO (06:44)
[2021-05-31] MEDS ORDERED: NITR100C PO (06:44)
[2021-05-31] MEDS ORDERED: CHLO473M3 MM (06:44)
[2021-05-31] MEDS ORDERED: ACETAMINOPHEN ES 500 MG TABLET PO PRN (07:30)
[2021-05-31] MEDS ORDERED: LORAZEPAM 1 MG TABLET PO PRN (07:30)
[2021-05-31] MEDS ORDERED: TRAZODONE 50 MG TABLET PO PRN (07:30)
[2021-05-31] MEDS ORDERED: LEVOTHYROXINE SODIUM 25 MCG TABLET ONE (08:22)
[2021-05-31] MEDS ORDERED: LEVOTHYROXINE SODIUM 50 MCG TABLET ONE (08:22)
[2021-05-31] MEDS: LEVOTHYROXINE SODIUM 75 MCG TABLET PO SCH (08:28)
[2021-05-31] MEDS: CHLORHEXIDINE GLUCONATE 15 ML UDC MM SCH ×2 (08:28→17:39)
[2021-05-31] MEDS ORDERED: NEO/POLY/DEXA OPHTH OINT 3.5 GM TUBE OP SCH (09:00)
[2021-05-31] MEDS ORDERED: HYDROCHLOROTHIAZIDE 25 MG TABLET PO SCH (09:00)
[2021-05-31] MEDS ORDERED: HYDROCHLOROTHIAZIDE 25 MG TABLET ONE (10:03)
[2021-05-31] MEDS ORDERED: AMLODIPINE BESYLATE 5 MG TABLET ONE (10:03)
[2021-05-31] MEDS ORDERED: DOCUSATE SODIUM 100 MG CAPSULE PO ONE (10:03)
[2021-05-31] MEDS: DOCUSATE SODIUM 100 MG CAPSULE PO SCH ×2 (10:05→17:39)
[2021-05-31] MEDS: AMLODIPINE BESYLATE 5 MG TABLET PO SCH (10:08)
[2021-05-31] MEDS ORDERED: Z GUARD REMEDY 4 OZ OINT TP PRN (12:30)
[2021-05-31] MEDS ORDERED: MAGNESIUM HYDROXIDE 30 ML UDC PO PRN (12:30)
[2021-05-31] MEDS ORDERED: MAG HYDROX/AL HYDROX/SIMETH 30 ML UDC PO PRN (12:30)
[2021-05-31] MEDS ORDERED: ACETAMINOPHEN 325 MG TABLET PO PRN (12:30)
[2021-05-31] MEDS ORDERED: ONDANSETRON HCL/PF 4 MG/2 ML VIAL IVP PRN (12:30)
--- NOTE | 2021-05-31 13:26 | NUR ---
SPEECH THERAPIST AT PT'S BEDSIDE
--- NOTE | 2021-05-31 13:29 | NUR ---
ALIYAH SPEECH THERAPIST ORDERED FOR REGULAR DIET; TOLERATED SWALLOWING AND CHEWING WELL.
--- NOTE | 2021-05-31 13:40 | NUR ---
GOT BED 313-1 AFTER 1400
[2021-05-31] MEDS ORDERED: DEXTROSE 50%-WATER 50 ML DISP.SYRIN IV PRN (14:00)
--- NOTE | 2021-05-31 15:50 | NUR ---
REPORT GIVEN TO MAGI COLEMAN FOR LULA
--- NOTE | 2021-05-31 16:50 | NUR ---
RN NOTES PATIENT TRANSFERRED TO UNIT AT ROOM 313-1 VIA RFRESNO, ACCOMPANIED BY 2 ER NURSES. PATIENT ATTACHED TO EXTERNAL PROFESSOR OF ENGINEERING. CALL LIGHT PLACED W/IN REACH FOR ASSISTANCE.
[2021-05-31] MEDS: NEO/POLY-B/DEXAM OPHTH SUSP 5 ML BOTTLE OP SCH (17:00)
--- NOTE | 2021-05-31 17:00 | NUR ---
RN NOTES A-FIB/FLUTTER CONTROLLED, V-PACED, HR IN THE 70'S TO 80'S.
[2021-05-31] MEDS: RIVAROXABAN 10 MG TABLET PO SCH (17:41)
[2021-05-31] MEDS ORDERED: BLOOD SUGAR DIAGNOSTIC 1 EACH STRIP IN SCH (18:00)
[2021-05-31] MEDS: BLOOD SUGAR DIAGNOSTIC 1 EACH STRIP IN SCH ×2 (18:08→22:00)
[2021-05-31] MEDS: INSULIN REGULAR, HUMAN 100 UNIT/ML 3 ML VIAL SQ PRN (18:08)
--- NOTE | 2021-05-31 18:17 | NUR ---
RN NOTES PHOTO OF SKIN ISSUE TAKEN AND PLACED IN THE CHART. COMPLAINT OF PAIN ON THE HAND; OFFERED PAIN MEDICATION AND ICE PACK BUT PATIENT REFUSED AT THIS TIME. WILL RE-OFFER AGAIN AT A LATER TIME.
--- NOTE | 2021-05-31 18:29 | NUR ---
RN NOTES PER PATIENT, SHE HAS RECEIVED MODERNA COVID VACCINE X2 AND BOOSTER WELL FLU VACCINE AND PNEUMONIA VACCINE.
[2021-05-31] MEDS: TRAMADOL HCL 50 MG TABLET PO PRN (18:51)
--- NOTE | 2021-05-31 19:10 | NUR ---
RN NOTES PATIENT IN BED RESTING, NOT IN ACUTE DISTRESS. DUE MEDS GIVEN IN THE AFTERNOON; EYE DROPS NOT AVAILABLE AT THIS TIME. SAFETY MEASURES MAINTAINED. ENDORSED TO SMALLTALK DEVELOPER RN FOR LULA.
[2021-05-31 20:00] VITALS: BP 130/86
--- NOTE | 2021-05-31 20:30 | NUR ---
CDL PROGRAM COORDINATOR OPENING NOTES: RECEIVED PATIENT SLEEP I BED, AROUSABLE TO VERBAL STIMULI, BED IN LOW POSITION, CALL LIGHTS WITHIN REACH, NO COMPLAIN OF PAIN AND DISCOMFORT AT THIS TIME, PATIENTIS A/O X4 ABLE TO EXPRESS NEEDS, ON TELE MONITORING SR, WITH IV LINE AT RY#18 WITH ONGOING 0.9NSS 1000ML @75ML PER/HR INFUSING WELL, NO RESP DISTRESS WAS OBSERVED, PATIENT KEPT CLEAN AND DRY, ALL NEEDS MET, WILL CONTINUE TO MONITOR.
--- NOTE | 2021-05-31 22:30 | NUR ---
RN NOTES: BLOOD SUGAR-100/ NO INSULIN GIVEN OUT OF PARAMETER
[2021-05-31] MEDS ORDERED: IV NS 0.9% 1,000 ML IV ONE (23:00)
[2021-05-31] MEDS: MIRTAZAPINE 15 MG TABLET PO SCH (23:17)
[2021-05-31] MEDS: ATORVASTATIN 10 MG TABLET PO SCH (23:17)
[2021-06-01] VITALS: BP 136/74
[2021-06-01 07:11] LABS: BASOPHILS % (AUTO) 0.7 % (0.0-2.0); EOSINOPHILS % (AUTO) 1.2 % (0.0-6.0); HEMATOCRIT 34 % (33-45); HEMOGLOBIN 11.3 g/dL (11.5-14.8); LYMPHOCYTES # (AUTO) 1.2 K/uL (0.8-4.8); LYMPHOCYTES % (AUTO) 19.8 % (20.0-44.0); MEAN CORPUSCULAR HGB CONC 34 g/dl (31.0-36.0); MEAN CORPUSCULAR VOLUME 88 fL (82-100); MONOCYTES # (AUTO) 0.6 K/uL (0.1-1.30); MONOCYTES % (AUTO) 9.5 % (2.0-12.0); NEUTROPHILS # (AUTO) 4.1 K/uL (1.8-8.9); NEUTROPHILS % (AUTO) 68.8 % (43.0-81.0); PLATELET COUNT (AUTO) 204 K/uL (150-450); RED BLOOD CELL COUNT(AUTO) 3.83 MIL/uL (4.0-5.2); WHITE BLOOD COUNT (AUTO) 5.9 K/uL (4.3-11.0)
[2021-06-01 07:27] LABS: CALCIUM, SERUM 9.2 mg/dL (8.5-10.1); CREATININE 1.1 mg/dL (0.6-1.3); MAGNESIUM 1.8 mg/dL (1.8-2.4); PHOSPHORUS 3.7 mg/dL (2.5-4.9); POTASSIUM 3.5 mmol/L (3.5-5.1)
[2021-06-01] MEDS: BLOOD SUGAR DIAGNOSTIC 1 EACH STRIP IN SCH ×4 (07:46→22:34)
--- NOTE | 2021-06-01 07:49 | NUR ---
ICE SKATING COACH CLOSING NOTES: PATIENT SLEEP IN BED COMFORTABLY, BED IN LOW POSITION, CALL LIGHTS WITHIN REACH, NO COMPLAIN OF PAIN AND DISCOMFORT AT THIS TIME, PATIENT ON ROOM AIR SATURATING WELL, ON TELE MONITORING WITH IV LINE AT YR#18 WITH ONGOING 0.9NSS@75 ML PER /HR ONE TIME INFUSING WELL, PATIENT KEPT CLEAN AND DRY, ALL NEEDS MET ENDORSE TO INCOMING SHIFT.
[2021-06-01 08:00] VITALS: BP 146/80
--- NOTE | 2021-06-01 08:00 | NUR ---
RN Opening Note Patient received in bed, AO x 4, able to responds all stimuli. Skin is warm to touch, keep clean/dry, intact IV site. Respiratory even and unlabored on room air. Kept elevated HOB for ensure air ,aspiration precaution and remains lower position of the bed. call light within reach, will continue to monitor.
[2021-06-01 08:03] LABS: THYROID STIMULATING HORMONE 2.076 uIU/mL (0.358-3.74)
[2021-06-01] MEDS: ASPIRIN EC 81 MG TABLET.DR PO SCH (09:00)
[2021-06-01] MEDS: DOCUSATE SODIUM 100 MG CAPSULE PO SCH ×2 (09:00→17:41)
[2021-06-01] MEDS: NEO/POLY-B/DEXAM OPHTH SUSP 5 ML BOTTLE OP SCH ×2 (09:00→17:42)
[2021-06-01] MEDS: LEVOTHYROXINE SODIUM 75 MCG TABLET PO SCH (09:00)
[2021-06-01] MEDS: AMLODIPINE BESYLATE 5 MG TABLET PO SCH (09:01)
[2021-06-01] MEDS: CHLORHEXIDINE GLUCONATE 15 ML UDC MM SCH ×2 (09:01→17:41)
[2021-06-01 12:00] VITALS: BP 140/89
[2021-06-01 15:54] VITALS: BP 116/72
[2021-06-01] MEDS: RIVAROXABAN 10 MG TABLET PO SCH (17:42)
--- NOTE | 2021-06-01 18:00 | NUR ---
RN Closing Note Patient in bed resting. No distress observed also, respiratory even and unlabored on room air. Skin is warm to touch, keep clean/dry. Intact IV site. Kept elevated HOB for ensure airway and aspiration precaution, Also lower position of the bed for safety. Call light within reach, all needs met. will endorse process safety management engineer.
--- NOTE | 2021-06-01 19:48 | NUR ---
LAY OUT DRAFTER OPENING RECEIVED PATIENT IN BED. A/OX4. NO S/S OF APPARENT DISTRESS ON ROOM AIR. NO C/O PAIN AT THIS TIME. NO FLUIDS RUNNING AT THIS TIME. R.UA IV ACCESS FLUSHED AND PATENT. TELE MONITOR READING A-FIB WITH V PACING IN THE 80'S. SAFETY IN PLACE. NEEDS ATTENDED AT THIS TIME. WILL CONTINUE WITH CARE PLAN.
[2021-06-01 20:30] VITALS: BP 148/80
[2021-06-01] MEDS: MIRTAZAPINE 15 MG TABLET PO SCH (21:59)
[2021-06-01] MEDS: ATORVASTATIN 10 MG TABLET PO SCH (22:02)
[2021-06-01] MEDS: *INSULIN REGULAR(HUMULIN R)HUM 100 UNIT/ML VIAL SQ PRN (22:35)
--- NOTE | 2021-06-01 22:35 | NUR ---
RN NOTE BLOOD SUGAR 101. NO COVERAGE NEEDED.
[2021-06-01] MEDS: TRAMADOL HCL 50 MG TABLET PO PRN (23:02)
--- NOTE | 2021-06-01 23:02 | NUR ---
RN NOTE PATIENT REQUESTING PAIN MEDICATION FOR HER ARTHRITIS. GIVEN ULTRAM 50MG.
[2021-06-02 00:08] VITALS: BP 151/76
[2021-06-02 04:34] VITALS: BP 148/86
[2021-06-02] MEDS: INSULIN REGULAR, HUMAN 100 UNIT/ML 3 ML VIAL SQ PRN (07:14)
[2021-06-02] MEDS: BLOOD SUGAR DIAGNOSTIC 1 EACH STRIP IN SCH ×4 (07:15→22:06)
--- NOTE | 2021-06-02 07:15 | NUR ---
MS RN NOTE BLOOD SUGAR 94. NO COVERAGE NEEDED.
--- NOTE | 2021-06-02 07:29 | NUR ---
REPORT GIVEN TO KAREL FOR CONTINUITY OF CARE.
--- NOTE | 2021-06-02 07:29 | NUR ---
MS RN OPENING NOTES RECEIVED PATIENT ON BED ALERT AND ORIENTED X 4. PATIENT IS ON ROOM AIR WITH EQUAL AND UNLABORED BREATHING, NO SOB NOTED. NO SIGNS AND SYMPTOMS OR COMPLAINTS OF PAIN OR DISCOMFORT AT THIS TIME. WITH RIGHT FOREARM G18 IV ACCESS ON SALINE LOCK, PATENT AND INTACT. SAFETY MEASURES IN PLACE. CALL LIGHT WITHIN REACH. BED ON LOWEST, LOCKED POSITION, SIDE RAILS UP X2. WILL CONTINUE TO MONITOR PATIENT.
[2021-06-02 08:26] VITALS: BP 131/71
[2021-06-02] MEDS: DOCUSATE SODIUM 100 MG CAPSULE PO SCH ×2 (09:15→18:04)
--- NOTE | 2021-06-02 09:15 | NUR ---
MS RN NOTE PATIENT SEEN BY DR. DAVIS. WILL CONTINUE TO MONITOR PATIENT.
[2021-06-02] MEDS: CHLORHEXIDINE GLUCONATE 15 ML UDC MM SCH ×2 (09:16→18:04)
[2021-06-02] MEDS: LEVOTHYROXINE SODIUM 75 MCG TABLET PO SCH (09:16)
[2021-06-02] MEDS: ASPIRIN EC 81 MG TABLET.DR PO SCH (09:16)
[2021-06-02] MEDS: AMLODIPINE BESYLATE 5 MG TABLET PO SCH (09:18)
[2021-06-02] MEDS: NEO/POLY-B/DEXAM OPHTH SUSP 5 ML BOTTLE OP SCH ×2 (09:19→18:04)
[2021-06-02 16:39] VITALS: BP 130/81
[2021-06-02] MEDS: RIVAROXABAN 10 MG TABLET PO SCH (18:07)
--- NOTE | 2021-06-02 19:11 | NUR ---
MS RN CLOSING NOTE PATIENT ON BED ALERT AND ORIENTED X 4. PATIENT IS ON ROOM AIR WITH EQUAL AND UNLABORED BREATHING, NO SOB NOTED. NO SIGNS AND SYMPTOMS OR COMPLAINTS OF PAIN OR DISCOMFORT AT THIS TIME. WITH RIGHT FOREARM G18 IV ACCESS ON SALINE LOCK, PATENT AND INTACT. SAFETY MEASURES IN PLACE. CALL LIGHT WITHIN REACH. BED ON LOWEST, LOCKED POSITION, SIDE RAILS UP X2. WILL ENDORSE TO NEXT SHIFT FOR CONTINUITY OF CARE.
--- NOTE | 2021-06-02 19:30 | NUR ---
MS RN OPENING RECEIVED PATIENT IN BED. A/OX4. NO S/S OF APPARENT DISTRESS ON ROOM AIR. NO C/O PAIN AT THIS TIME. NO FLUIDS RUNNING AT THIS TIME. R.UA IV ACCESS FLUSHED AND PATENT. SAFETY IN PLACE. NEEDS ATTENDED AT THIS TIME. WILL CONTINUE WITH CARE PLAN.
[2021-06-02 20:00] VITALS: BP 133/70
[2021-06-02] MEDS: TRAMADOL HCL 50 MG TABLET PO PRN (21:47)
[2021-06-02] MEDS: MIRTAZAPINE 15 MG TABLET PO SCH (21:47)
[2021-06-02] MEDS: ATORVASTATIN 10 MG TABLET PO SCH (21:47)
[2021-06-02] MEDS: *INSULIN REGULAR(HUMULIN R)HUM 100 UNIT/ML VIAL SQ PRN (22:06)
[2021-06-03] MEDS: BLOOD SUGAR DIAGNOSTIC 1 EACH STRIP IN SCH ×2 (06:52→12:08)
[2021-06-03] MEDS: INSULIN REGULAR, HUMAN 100 UNIT/ML 3 ML VIAL SQ PRN (06:53)
--- NOTE | 2021-06-03 06:53 | NUR ---
MS RN NOTE BLOOD SUGAR 89. NO COVERAGE NEEDED.
--- NOTE | 2021-06-03 07:41 | NUR ---
REPORT GIVEN TO NICOLETTE FOR CONTINUITY OF CARE.
[2021-06-03] MEDS: LEVOTHYROXINE SODIUM 75 MCG TABLET PO SCH (08:22)
[2021-06-03 08:33] VITALS: BP 141/64
[2021-06-03] MEDS: DOCUSATE SODIUM 100 MG CAPSULE PO SCH ×2 (08:39→17:42)
[2021-06-03] MEDS: ASPIRIN EC 81 MG TABLET.DR PO SCH (08:39)
[2021-06-03] MEDS: AMLODIPINE BESYLATE 5 MG TABLET PO SCH (08:39)
[2021-06-03] MEDS: CHLORHEXIDINE GLUCONATE 15 ML UDC MM SCH ×2 (08:39→17:41)
[2021-06-03] MEDS: NEO/POLY-B/DEXAM OPHTH SUSP 5 ML BOTTLE OP SCH ×2 (08:40→17:43)
--- NOTE | 2021-06-03 11:23 | NUR ---
MS/RN NOTES- IV INFILTRATED RIGHT AC IV ACCESS IS INFILTRATED. DR. CANA[place] IS AWARE. RN DISCONTINUE IV ACCESS, PER MD, NO NEED FOR IV AT THIS TIME. APPLIED WARM COMPRESS, ADVISE PATIENT TO ELEVATE RIGHT ARM. TYLENOL PRN GIVEN. WILL MONITOR.
--- NOTE | 2021-06-03 12:07 | NUR ---
SS Consult: SS consult for CVA. Pt. Is an 85-year-old female. Pt. demonstrates adequate insight to the reason for hospitalization. Per pt., she was brought to hospital by ambulance due to having a stroke. Pt. was oriented x4, alert, and cooperative. During interview, pt. was capable of following directions, made appropriate eye-contact, and appeared well-groomed. Pt.s speech was at a normal rate. Pt.s mood was elevated. MARGARITA explored pt.s hx of mental health and substance abuse. Pt. reported no hx of mental health, substance abuse, suicidal or homicidal ideation. Pt. denies auditory hallucinations, visual hallucinations, paranoia, or delusions. SW explored pt.s living situation. Per pt., she lives with her at a facility [[facility], [address] [place] [address]. [place] [phone]]. Pt. stated that she feels safe there. Per pt., there are nurses and caregivers there when needed, but she does not have a permanent caregiver. MARGARITA explored pt.s stroke. Per pt., she was sitting in the lounge, as she was getting up to grab her walker, she fell and cut her hand. Pt. mentioned that there were nurses around to help her. Pt. stated that she has adequate from her [id number] [[facility] [phone]], she visits often. Pt. mentioned that she will be transferred to [facility] for rehab. MARGARITA did the PHQ9 screening on pt. She scored a 1, no need for psych consult. Plan: MARGARITA provided available resources and pt. accepted. Once discharge, per pt., he will return to back to facility after being transferred to [facility]. Resources Provided: [employer] [facility].
[2021-06-03] MEDS ORDERED: ATOR10TA PO (15:46)
[2021-06-03] MEDS ORDERED: Aspirin Ec PO (15:46)
[2021-06-03 15:59] VITALS: BP 137/77
[2021-06-03] MEDS: RIVAROXABAN 10 MG TABLET PO SCH (17:42)
--- NOTE | 2021-06-03 18:14 | NUR ---
MS/SALESPERSON FLOWERS NOTES PATIENT IS ALERT AND ORIENTEDX4, ABLE TO MAKE NEEDS KNOWN. PATIENT IS MEDICALLY STABLE AND DR. DAVIS ORDERED TRANSFER TO REHAB FACILITY. DISCHARGE INSTRUCTIONS GIVEN TO JARED BERMUDEZ AT [facility]. IV ACCESS DISCONTINUED. ALL BELONGINGS ACCOUNTED FOR. PATIENT PICKED UP BY EMT FOR TRANSFER.
== END 2021-06-03 18:00 | DRG 64 ==
LOC: ER 20:13 → TRANSITION 05-31 07:01 → TELE 05-31 16:14 → MED 06-02 09:26
PROVIDERS: ADMIT Internal Medicine; ATTEND Internal Medicine
DX: I63.511 Cerebral infarction due to unspecified occlusion or stenosis of right middle cerebral artery (principal); N17.0 Acute kidney failure with tubular necrosis; G81.94 Hemiplegia, unspecified affecting left nondominant side; I25.10 Atherosclerotic heart disease of native coronary artery without angina pectoris; I48.91 Unspecified atrial fibrillation; F41.9 Anxiety disorder, unspecified; E78.5 Hyperlipidemia, unspecified; E03.9 Hypothyroidism, unspecified; D64.9 Anemia, unspecified; I10 Essential (primary) hypertension; R91.1 Solitary pulmonary nodule; Z95.0 Presence of cardiac pacemaker; N39.41 Urge incontinence; R29.810 Facial weakness; Z87.891 Personal history of nicotine dependence; S61.412A Laceration without foreign body of left hand, initial encounter; W19.XXXA Unspecified fall, initial encounter; Y93.9 Activity, unspecified; Y92.89 Other specified places as the place of occurrence of the external cause; R29.700 NIHSS score 0; Z20.822 Contact with and (suspected) exposure to COVID-19; Z86.73 Personal history of transient ischemic attack (TIA), and cerebral infarction without residual deficits; Z79.01 Long term (current) use of anticoagulants
CPT/HCPCS: 36415; 70450-TC; 70496-TC; 70498-TC; 71045-TC; 71250-TC; 80048-TC; 82465-TC; 82962-TC; 83735-TC; 84100-TC; 84443-TC; 84484-TC; 85025-TC; 85730-TC; 86480; 87081-TC; 92526; 92611-TC; 93307-TC; 97110-TC; 97116-TC; 97530-TC; 97535-TC; C9803; G0378; J7030; J7050; Q9967